=== PATIENT | female | born 1965 | race Caucasian/White ===

== ENCOUNTER 2018-12-19 09:28 | Outpatient (CLI) | payer OTHER | END 2018-12-19 09:29 | disposition home or self-care (01) | LOC: C.MAMMO 09:29 ==

== ENCOUNTER 2019-02-26 06:39 | Day surgery (SDC) | payer OTHER ==
[2019-02-25 11:11] VITALS: BMI 26.6
[2019-02-26] MEDS ORDERED: Propofol 10 mg/ml Inj (20 ML) ONE ×2 (09:39→10:00)
--- NOTE | 2019-02-26 09:46 | CP.SDSHP ---
Same Day Surgery H & P - History Proposed Procedure: colonoscopy Pre-Op Diagnosis: rectal bleeding - Previous Medical/Surgical History Previous Surgical History: C section - Allergies Allergies: Allergies No Known Allergies Allergy (Verified 10/13/14 15:38) - Physical Exam Vital Signs: Vital Signs 02/26/19 07:01 Temperature 97.1 F L Pulse Rate 81 Respiratory 17 Rate Blood Pressure 135/72 O2 Sat by Pulse 100 Oximetry Mental Status: Alert & Oriented x3 Neuro: WNL Heart: WNL Lungs: WNL GI: WNL - Impression Impression: rectal bleeding. screening for colon cancer Pt. Evaluated Today:Candidate for Anesthesia & Procedure: Yes - Date & Time Date: 02/26/19 Time: 09:46 Short Stay Discharge - Short Stay Discharge Admitting Diagnosis/Reason for Visit: ENCOUNTER FOR SCREENING FOR MALIGNANT NEOPLASM OF Disposition: HOME/ ROUTINE
[2019-02-26 10:31] VITALS: TEMP 98.1
[2019-02-26 11:27] VITALS: O2SAT 100
[2019-02-26 11:30] VITALS: BP 91/58; PULSE 81; RESP 16
== END 2019-02-26 11:23 | disposition home or self-care (01) ==
LOC: C.ENDO 06:39
PROVIDERS: ATTEND Internal Medicine Gastroenterology
DX: Z12.11 Encounter for screening for malignant neoplasm of colon (principal); K64.8 Other hemorrhoids
CPT/HCPCS: 45378; J2704